=== PATIENT | male | born 1985 | race Hispanic/Latino ===

== ENCOUNTER 2018-01-07 19:44 | Emergency (ER) | payer BC ==
[2018-01-07] MEDS ORDERED: Sodium Chloride 0.9% 1,000 ML IV ONE (20:03)
[2018-01-07 20:28] VITALS: TEMP 98.2
[2018-01-07 20:31] LABS: BASO # 0.02 K/mm3 (0.0-2.0); BASO % 0.3 % (0.0-3.0); EOS # 0.1 (0.0-0.7); EOS % 1.5 % (1.5-5.0); GRAN # 3.33 (1.4-6.5); GRAN % 49.5 % (50.0-68.0); HEMOGLOBIN 14.7 g/dL (14.0-18.0); LYMPH # 2.8 (1.2-3.4); LYMPH % 41.6 % (22.0-35.0); MEAN CELL VOLUME 84.2 fl (80.0-105.0); MEAN CORPUSCULAR HEMOGLOBIN 30.5 pg (25.0-35.0); MEAN CORPUSCULAR HGB CONC 36.2 g/dl (31.0-37.0); MEAN PLATELET VOLUME 9.8 fl (7.0-11.0); MONO # 0.5 (0.1-0.6); MONO % 7.1 % (1.0-6.0); RBC 4.82 10^6/uL (3.5-6.1); RED CELL DISTRIBUTION WIDTH 12.5 % (11.5-14.5); WHITE BLOOD COUNT 6.7 10^3/ul (4.5-11.0)
[2018-01-07 20:37] LABS: ACETAMINOPHEN < 10.0 ug/ml (10.0-20.0); ALB/GLOB RATIO 1.6 (1.1-1.8); ALBUMIN 4.7 g/dL (3.0-4.8); ALT/SGPT 17 U/L (7-56); AST/SGOT 25 U/L (17-59); BLOOD UREA NITROGEN 11 mg/dL (7-21); CALCIUM 8.8 mg/dL (8.4-10.5); GFR AFRICAN-AMERICAN > 60; GFR NON-AFRICAN AMERICAN > 60; SALICYLATE < 1 mg/dL (2.0-20.0)
--- NOTE | 2018-01-07 21:08 | ED PDOC ---
Arrival/HPI - General Chief Complaint: Alcohol Ingestion Time Seen by Provider: 01/07/18 20:03 - History of Present Illness Narrative History of Present Illness (Text): 01/07/18 20:00 Rafy Diaz is a 32 year old male who presents to the Emergency department brought in by EMS for alcohol intoxication and depression. Patient states he drank alcohol tonight because he was feeling depressed as his girlfriend recently committed suicide yesterday. Patient denies any coingestion, suicidal ideation, homicidal ideation, or any somatic complaints. Symptom Onset: Gradual Symptom Course: Unchanged Activities at Onset: Emotional Upset Context: Home Past Medical History - Provider Review Nursing Documentation Reviewed: Yes - Infectious Disease Hx of Infectious Diseases: None - Psychiatric Hx Substance Use: No Family/Social History - Physician Review Nursing Documentation Reviewed: Yes Family/Social History: Unknown Family HX Smoking Status: Unknown If Ever Smoked Hx Alcohol Use: Yes Hx Substance Use: No Allergies/Home Meds Allergies/Adverse Reactions: Allergies Unobtainable Allergy (Verified 01/07/18 19:57) Home Medications: Home Meds Medication Instructions Recorded Confirmed Unobtainable 01/07/18 01/07/18 Review of Systems - Physician Review All systems were reviewed & negative as marked: Yes - Review of Systems Constitutional: Normal. absent: Fevers Eyes: Normal ENT: Normal Respiratory: Normal. absent: SOB, Cough Cardiovascular: Normal. absent: Chest Pain Gastrointestinal: Normal. absent: Abdominal Pain, Diarrhea, Nausea, Vomiting Genitourinary Male: Normal. absent: Dysuria, Frequency, Hematuria, Urinary Output Changes Musculoskeletal: Normal. absent: Back Pain, Neck Pain Skin: Normal. absent: Rash Neurological: Normal. absent: Headache, Dizziness Endocrine: Normal Hemo/Lymphatic: Normal Psychiatric: Depression Physical Exam Vital Signs Reviewed: Yes Vital Signs Temp Pulse Resp BP Pulse Ox 01/08/18 02:40 89 18 117/62 100 01/07/18 23:50 99 H 12 116/62 98 01/07/18 22:15 97 H 19 107/65 97 01/07/18 20:04 98.2 F 93 H 22 121/72 100 Temperature: Afebrile Blood Pressure: Normal Pulse: Regular Respiratory Rate: Normal Appearance: Positive for: Well-Appearing, Non-Toxic, Comfortable Pain Distress: None Mental Status: Positive for: Alert and Oriented X 3 - Systems Exam Head: Present: Atraumatic, Normocephalic Pupils: Present: PERRL Extroacular Muscles: Present: EOMI Conjunctiva: Present: Normal Mouth: Present: Moist Mucous Membranes Neck: Present: Normal Range of Motion Respiratory/Chest: Present: Clear to Auscultation, Good Air Exchange. No: Respiratory Distress, Accessory Muscle Use Cardiovascular: Present: Regular Rate and Rhythm, Normal S1, S2. No: Murmurs Abdomen: No: Tenderness, Distention, Peritoneal Signs Back: Present: Normal Inspection Upper Extremity: Present: Normal Inspection. No: Cyanosis, Edema Lower Extremity: Present: Normal Inspection. No: Edema Neurological: Present: GCS=15, CN II-XII Intact, Speech Normal Skin: Present: Warm, Dry, Normal Color. No: Rashes Psychiatric: Present: Alert, Oriented x 3, Normal Insight, Normal Concentration Medical Decision Making ED Course and Treatment: 01/07/18 20:00 Impression: 32 year old male brought in for alcohol intoxication and depression. Plan: -- Labs, alcohol level -- IV fluids -- Zofran -- Reassess and disposition Progress Notes: 01/08/18 02:20 Pt seen and evaluated by MADISON Stratton, who discussed case with psychiatrist internal controls analyst. Pt psychiatrically cleared for d/c home with outpt f/u at [facility]. Pt agreeable with plan. 01/08/18 02:30 Pt awake, alert, ambulating with steady gait. Family present at bedside. Pt stable for d/c. - Lab Interpretations Lab Results: 01/07/18 20:18 01/07/18 20:18 Lab Results 01/07/18 23:35: Urine Opiates Screen Negative, Urine Methadone Screen Negative, Ur Barbiturates Screen Negative, Ur Phencyclidine Scrn Negative, Ur Amphetamines Screen Negative, U Benzodiazepines Scrn Negative, U Oth Cocaine Metabols Negative, U Cannabinoids Screen Negative 01/07/18 23:35: Urine Color Yellow, Urine Appearance Clear, Urine pH 6.0, Ur Specific [place] 1.015, Urine Protein Negative, Urine Glucose (UA) Negative, Urine Ketones Negative, Urine Blood Negative, Urine Nitrate Negative, Urine Bilirubin Negative, Urine Urobilinogen 0.2, Ur Leukocyte Esterase Negative 01/07/18 20:18: Alcohol, Quantitative 261 H 01/07/18 20:18: Salicylates < 1 L, Acetaminophen < 10.0 L 01/07/18 20:18: Sodium 145, Potassium 3.6, Chloride 103, Carbon Dioxide 24, Anion Gap 22 H, BUN 11, Creatinine 1.0, Est GFR ( Amer) > 60, Est GFR ( Non-Af Amer) > 60, Random Glucose 133 H, Calcium 8.8, Total Bilirubin 0.7, AST 25, ALT 17, Alkaline Phosphatase 50, Total Protein 7.6, Albumin 4.7, Globulin 2.9, Albumin/Globulin Ratio 1.6 01/07/18 20:18: WBC 6.7, RBC 4.82, Hgb 14.7, Hct 40.6 L, MCV 84.2, MCH 30.5, MCHC 36.2, RDW 12.5, Plt Count 232, MPV 9.8, Gran % 49.5 L, Lymph % (Auto) 41.6 H, [place] % (Auto) 7.1 H, Eos % (Auto) 1.5, Baso % (Auto) 0.3, Gran # 3.33, Lymph # (Auto) 2.8, [place] # (Auto) 0.5, Eos # (Auto) 0.1, Baso # (Auto) 0.02 - Medication Orders Current Medication Orders: Discontinued Medications Sodium Chloride (Sodium Chloride 0.9%) 1,000 mls @ 250 mls/hr IV .Q4H ONE Stop: 01/08/18 00:02 Last Admin: 01/07/18 20:18 Dose: 250 mls/hr eMAR Start Stop Document 01/07/18 20:18 CNR (Rec: 01/07/18 20:18 CNR [id number]) Intravenous Solution Start Date 01/07/18 Start Time 20:18 Ondansetron HCl (Zofran Inj) 8 mg IVP STAT STA Stop: 01/07/18 20:04 Last Admin: 01/07/18 20:18 Dose: 8 mg IVP Administration Document 01/07/18 20:18 CNR (Rec: 01/07/18 20:18 CNR [id number]) Charges for Administration # of IVP Administrations 1 - Scribe Statement The provider has reviewed the documentation as recorded by the James Palomares Provider Scribe Attestation: All medical record entries made by the Scribe were at my direction and personally dictated by me. I have reviewed the chart and agree that the record accurately reflects my personal performance of the history, physical exam, medical decision making, and the department course for this patient. I have also personally directed, reviewed, and agree with the discharge instructions and disposition. Disposition/Present on Arrival - Present on Arrival Any Indicators Present on Arrival: No History of DVT/PE: No History of Uncontrolled Diabetes: No Urinary Catheter: No History of Decub. Ulcer: No History Surgical Site Infection Following: None - Disposition Have Diagnosis and Disposition been Completed?: Yes Diagnosis: Alcohol intoxication Disposition: HOME/ ROUTINE Disposition Time: 21:00 Condition: IMPROVED Discharge Instructions (ExitCare): Depression, Adult (DC) Additional Instructions: RAFY DIAZ, thank you for letting us take care of you today. Your provider was Terrell Meneses DO and you were treated for ETOH. The emergency medical care you received today was directed at your acute symptoms. If you were prescribed any medication, please fill it and take as directed. It may take several days for your symptoms to resolve. Return to the Emergency Department if your symptoms worsen, do not improve, or if you have any other problems. Please contact your doctor or call one of the physicians/clinics you have been referred to that are listed on the Patient Visit Information form that is included in your discharge packet. Bring any paperwork you were given at discharge with you along with any medications you are taking to your follow up visit. Our treatment cannot replace ongoing medical care by a primary care provider outside of the emergency department. Thank you for allowing the [facility] team to be part of your care today. Follow up with Dr. García in 1-2 days. Please drink alcohol in moderation. Please return to the emergency room if you have any thoughts of hurting yourself or feeling depressed. Referrals: Adebayo García MD [Non-Staff] - Follow up with primary Forms: [employer] (Greek)
[2018-01-08 00:04] LABS: URINE BILIRUBIN NEGATIVE (NEGATIVE); URINE BLOOD NEGATIVE (NEGATIVE); URINE GLUCOSE (UA) NEGATIVE (NEGATIVE); URINE LEUKOCYTE ESTERASE NEGATIVE Leu/uL (NEGATIVE); URINE PROTEIN NEGATIVE mg/dL (<30 mg/dL); URINE UROBILINOGEN 0.2 E.U./dL (<1 E.U./dL)
[2018-01-08 00:06] LABS: URINE APPEARANCE CLEAR (CLEAR); URINE COLOR YELLOW (YELLOW)
[2018-01-08 00:17] LABS: BARBITURATES, UR NEGATIVE (NEGATIVE); BENZODIAZEPINES, UR NEGATIVE (NEGATIVE); OPIATES, UR NEGATIVE (NEGATIVE); PHENCYCLIDINE, UR NEGATIVE (NEGATIVE)
[2018-01-08 02:41] VITALS: BP 117/62; PULSE 89; RESP 18; O2SAT 100
== END 2018-01-08 02:40 | disposition home or self-care (01) ==
LOC: ED 19:44
DX: F10.129 Alcohol abuse with intoxication, unspecified (principal)
CPT/HCPCS: 80053; 81003; 85025; 90791; 96374; 99283; G0480; J2405; J7030